=== PATIENT | female | born 1940 | race Caucasian/White ===

== ENCOUNTER 2017-06-14 17:53 | Inpatient (IN) ==
[2017-06-14] MEDS ORDERED: cefTRIAXone 1,000 MG in SODIUM CHLORIDE 0.9% 100 ML IV STA (19:22)
[2017-06-14] MEDS ORDERED: FUROSEMIDE 100 MG/10 ML VIAL IV STA (19:22)
[2017-06-14] MEDS ORDERED: SODIUM CHLORIDE 0.9% 500 ML IV STA (19:22)
[2017-06-14] MEDS ORDERED: methylPREDNISolone SOD SUC 125 MG/2 ML VIAL IV STA (19:22)
[2017-06-14] MEDS ORDERED: ALBUTEROL 2.5 MG/3 ML NEB RESP TX SCH (19:30)
[2017-06-14] MEDS ORDERED: SODIUM CHLORIDE 0.9% 100 ML IV ONE (19:32)
[2017-06-14] MEDS ORDERED: methylPREDNISolone SOD SUC 125 MG/2 ML VIAL ONE (19:32)
[2017-06-14] MEDS ORDERED: cefTRIAXone 1,000 MG VIAL ONE (19:32)
[2017-06-14] MEDS ORDERED: FUROSEMIDE 20 MG/2 ML VIAL ONE (19:32)
[2017-06-14 20:00] LABS: Basophils % 0.5 % (0.0-0.8); Eosinophils % 0.1 % (0.00-10.9); Hematocrit 44.4 VOL% (35.7-47.0); Hemoglobin 15.1 GM/DL (12.0-16.0); Immature Granulocytes % 0.4 %; Immature Granulocytes Absolute 0.03 #; Lymphocytes # 0.7 10*3/uL (1.4-4.0); Lymphocytes % 8.6 % (21.3-54.2); Mean Corpuscular Hemoglobin 30 PG (27-34); Mean Corpuscular Volume 86.7 FL (87-102); Mean Platelet Volume 12.5 FL (9.6-12.0); Monocytes # 0.7 10*3/uL (0.11-0.8); Monocytes % 8.6 % (1.7-12.7); Neutrophils # 6.6 10*3/uL (1.4-7.4); Neutrophils % 81.8 % (38.7-73.9); Platelet Count 153 T/CUMM (130-400); Red Blood Count 5.12 MC/CUMM (3.8-5.5); Red Cell Distribution Width 13.6 % (9.3-17.3)
[2017-06-14 20:11] LABS: INR 1.1; PT Patient Result 11.2 SECS
[2017-06-14 20:16] LABS: Apearance,Urine CLEAR (Clear); Bacteria,Urine Occasional /HPF (Few); Bilirubin,Urine Negative (Negative); Blood, Urine Small mg/dL (Negative); Glucose,Urine (UA) Negative (Negative); Ketones,Urine Negative (Negative); Nitrite,Urine Negative (Negative); Protein,Urine Negative; Squamous Epithelial Cell,Urine Occasional /HPF (0-10); Urine Color Straw (Yellow); Urine Specific Gravity 1.002 (1.001-1.035); Urine Urobilinogen < 2.0 EU/DL (0.2-1.0); WBC,Urine <1 /HPF (0-6)
[2017-06-14 20:47] LABS: Albumin 3.7 G/DL (3.4-5.0); Bilirubin,Total 0.7 MG/DL (0.2-1.0); Calcium 8.9 MG/DL (8.5-10.1); Magnesium 2.2 MG/DL (1.8-2.4); Potassium 4.2 MMOL/L (3.5-5.1); Total Protein 7.3 G/DL (6.4-8.3); Troponin I Only 0.041 NG/ML (0.00-0.045)
[2017-06-14] MEDS ORDERED: ONDANSETRON 4 MG/2 ML VIAL ONE (20:54)
[2017-06-14] MEDS ORDERED: FUROSEMIDE 40 MG/4 ML VIAL IV STA (20:55)
[2017-06-14] MEDS ORDERED: DILTIAZEM 50 MG/10 ML VIAL IV ONE (21:06)
[2017-06-14] MEDS ORDERED: ENOXAPARIN 100 MG/ML SYRINGE SUBCUT STA (21:28)
[2017-06-14] MEDS ORDERED: DILTIAZEM INJ 100 MG in SODIUM CHLORIDE 0.9% 100 ML IV SCH (21:30)
[2017-06-14] MEDS ORDERED: ENOXAPARIN 100 MG/ML SYRINGE SUBCUT ONE (21:31)
[2017-06-14] MEDS ORDERED: DILTIAZEM 100 MG VIAL.ADD IV ONE (21:31)
[2017-06-14] MEDS ORDERED: FUROSEMIDE 40 MG/4 ML VIAL ONE (21:50)
[2017-06-14] MEDS ORDERED: METOPROLOL TARTRATE 5 MG/5 ML VIAL IV STA (22:12)
[2017-06-14] MEDS ORDERED: METOPROLOL TARTRATE 5 MG/5 ML VIAL IV ONE (22:12)
[2017-06-15] MEDS ORDERED: LACTULOSE 20 GM/30 ML UDCUP PO PRN (00:51)
[2017-06-15] MEDS ORDERED: DEXTROSE 50% 25 GM/50 ML VIAL IV PRN ×3 (00:51→09:00)
[2017-06-15] MEDS ORDERED: GLUCAGON 1 MG VIAL IM PRN ×3 (00:51→09:00)
[2017-06-15] MEDS ORDERED: SODIUM CHLORIDE 0.9% 1,000 ML IV SCH (00:51)
[2017-06-15] MEDS ORDERED: ALBUTEROL/IPRATROPIUM 3 ML NEB RESP TX PRN (00:51)
[2017-06-15] MEDS ORDERED: MORPHINE 2 MG/1 ML SYRINGE IV PRN (00:51)
[2017-06-15] MEDS ORDERED: LEVOFLOXACIN INJ 750 MG in PREMIX 1 EACH IV SCH (00:51)
[2017-06-15] MEDS ORDERED: ONDANSETRON 4 MG/2 ML VIAL IV PRN (00:51)
[2017-06-15] MEDS: cefTRIAXone 1,000 MG in SYRINGE 1 EACH IV SCH (02:15)
[2017-06-15] MEDS: methylPREDNISolone SOD SUC 40 MG/1 ML VIAL IV SCH ×3 (02:26→16:51)
[2017-06-15 03:22] LABS: Basophils % 0.1 % (0.0-0.8); Immature Granulocytes % 0.5 %; Immature Granulocytes Absolute 0.04 #; Lymphocytes # 0.4 10*3/uL (1.4-4.0); Lymphocytes % 4.1 % (21.3-54.2); Mean Corpuscular HGB Conc 32.6 GM/DL (32-36); Mean Corpuscular Hemoglobin 29 PG (27-34); Mean Corpuscular Volume 87.6 FL (87-102); Mean Platelet Volume 13.4 FL (9.6-12.0); Monocytes # 0.1 10*3/uL (0.11-0.8); Monocytes % 1.5 % (1.7-12.7); Neutrophils # 7.9 10*3/uL (1.4-7.4); Neutrophils % 93.8 % (38.7-73.9); Platelet Count 158 T/CUMM (130-400); Red Blood Count 4.91 MC/CUMM (3.8-5.5); Red Cell Distribution Width 14.1 % (9.3-17.3); White Blood Count 8.5 T/CUMM (4-12)
[2017-06-15] MEDS ORDERED: AMIODARONE INJ 450 MG in DEXTROSE 5% 241 ML IV SCH (03:30)
[2017-06-15] MEDS ORDERED: AMIODARONE 450 MG/9 ML VIAL IV ONE (03:31)
[2017-06-15 03:33] LABS: Albumin 3.3 G/DL (3.4-5.0); Bilirubin,Total 0.6 MG/DL (0.2-1.0); Calcium 8.1 MG/DL (8.5-10.1); Magnesium 2.2 MG/DL (1.8-2.4); Potassium 3.2 MMOL/L (3.5-5.1); Risk Ratio 2.36; Total Protein 6.8 G/DL (6.4-8.3)
[2017-06-15 03:38] LABS: Troponin I Only 0.106 NG/ML (0.00-0.045)
[2017-06-15 03:51] LABS: Band Neutrophils 1 % (0-10); Lymphocytes 5 % (20-55); Segmented Neutrophils 94 % (50-85)
[2017-06-15 03:52] LABS: Platelet Estimate Adequate; Total Cells Counted 100
[2017-06-15] MEDS: INSULIN REGULAR 100 UNIT/ML SUBCUT SCH ×5 (04:42→21:52)
[2017-06-15] MEDS ORDERED: INSULIN REGULAR 100 UNIT/ML SUBCUT SCH (07:30)
[2017-06-15] MEDS ORDERED: FUROSEMIDE 40 MG/4 ML VIAL IV SCH (08:00)
[2017-06-15] MEDS ORDERED: SODIUM CHLOR 0.45% KCL 20 MEQ 20 MEQ/1,000 ML BAG IV SCH (08:00)
[2017-06-15] MEDS: MONTELUKAST 10 MG TABLET PO SCH (08:44)
[2017-06-15] MEDS: DOCUSATE SODIUM 100 MG CAPSULE PO SCH ×2 (08:44→21:52)
[2017-06-15] MEDS: CETIRIZINE 10 MG TABLET PO SCH (08:44)
[2017-06-15] MEDS: METOPROLOL TARTRATE 25 MG TABLET PO SCH ×2 (08:44→21:52)
[2017-06-15] MEDS: ASPIRIN EC 81 MG TABLET PO SCH (08:45)
[2017-06-15] MEDS: PANTOPRAZOLE 40 MG VIAL IV SCH (08:45)
[2017-06-15] MEDS: ENOXAPARIN 100 MG/ML SYRINGE SUBCUT SCH ×2 (08:45→21:51)
[2017-06-15] MEDS: glipiZIDE 10 MG TABLET PO SCH ×2 (09:49→21:52)
[2017-06-15] MEDS: POTASSIUM CHLORIDE 10 MEQ TABLET PO SCH ×2 (09:49→21:52)
[2017-06-15] MEDS: SODIUM CHLOR 0.45% KCL 20 MEQ 20 MEQ/1,000 ML BAG IV SCH (09:53)
[2017-06-15] MEDS: AMIODARONE INJ 450 MG in DEXTROSE 5% 241 ML IV SCH (09:54)
[2017-06-15 14:12] LABS: Troponin I Only 0.295 NG/ML (0.00-0.045)
[2017-06-15 16:12] LABS: CKMB % 3.3 %
[2017-06-15 16:15] LABS: Troponin I Only 0.283 NG/ML (0.00-0.045)
[2017-06-16] MEDS: methylPREDNISolone SOD SUC 40 MG/1 ML VIAL IV SCH ×3 (01:29→16:58)
[2017-06-16] MEDS: cefTRIAXone 1,000 MG in SYRINGE 1 EACH IV SCH (01:32)
[2017-06-16] MEDS: AMIODARONE INJ 450 MG in DEXTROSE 5% 241 ML IV SCH (02:52)
[2017-06-16 05:04] LABS: Basophils % 0.1 % (0.0-0.8); Hematocrit 43.6 VOL% (35.7-47.0); Hemoglobin 14.5 GM/DL (12.0-16.0); Immature Granulocytes Absolute 0.22 #; Lymphocytes # 1.1 10*3/uL (1.4-4.0); Lymphocytes % 5.2 % (21.3-54.2); Mean Corpuscular HGB Conc 33.3 GM/DL (32-36); Mean Corpuscular Hemoglobin 29 PG (27-34); Mean Corpuscular Volume 87.6 FL (87-102); Mean Platelet Volume 13.5 FL (9.6-12.0); Monocytes # 0.8 10*3/uL (0.11-0.8); Neutrophils # 18.8 10*3/uL (1.4-7.4); Neutrophils % 89.7 % (38.7-73.9); Platelet Count 162 T/CUMM (130-400); Red Blood Count 4.98 MC/CUMM (3.8-5.5)
[2017-06-16] MEDS: SODIUM CHLOR 0.45% KCL 20 MEQ 20 MEQ/1,000 ML BAG IV SCH (05:40)
[2017-06-16 05:44] LABS: Calcium 9.1 MG/DL (8.5-10.1); Magnesium 2.6 MG/DL (1.8-2.4); Osmolality,Calculated 284.7 MOS/KG (273-304); Potassium 4.4 MMOL/L (3.5-5.1)
[2017-06-16 05:49] LABS: Ferritin 268.1 ng/ml (8-252); Thyroid Stimulating Hormone 0.183 uIU/ml (0.358-3.74)
[2017-06-16 06:22] LABS: Band Neutrophils 10 % (0-10); Hypochromasia 1+; Lymphocytes 8 % (20-55); Microcytosis 1+; Platelet Estimate Adequate; Segmented Neutrophils 79 % (50-85); Total Cells Counted 100
[2017-06-16 06:26] LABS: Albumin 3.5 G/DL (3.4-5.0); Bilirubin,Total 0.9 MG/DL (0.2-1.0); Calcium 8.9 MG/DL (8.5-10.1); Osmolality,Calculated 283.7 MOS/KG (273-304); Potassium 4.7 MMOL/L (3.5-5.1); Total Protein 7.1 G/DL (6.4-8.3)
[2017-06-16] MEDS ORDERED: POTASSIUM CHLORIDE 10 MEQ TABLET PO SCH (09:00)
[2017-06-16] MEDS ORDERED: FUROSEMIDE 40 MG/4 ML VIAL IV SCH (09:00)
[2017-06-16] MEDS: glipiZIDE 10 MG TABLET PO SCH ×2 (09:14→21:40)
[2017-06-16] MEDS: CETIRIZINE 10 MG TABLET PO SCH (09:15)
[2017-06-16] MEDS: ENOXAPARIN 100 MG/ML SYRINGE SUBCUT SCH (09:15)
[2017-06-16] MEDS: METOPROLOL TARTRATE 25 MG TABLET PO SCH ×2 (09:15→21:40)
[2017-06-16] MEDS: MONTELUKAST 10 MG TABLET PO SCH (09:15)
[2017-06-16] MEDS: DOCUSATE SODIUM 100 MG CAPSULE PO SCH ×2 (09:15→21:41)
[2017-06-16] MEDS: ASPIRIN EC 81 MG TABLET PO SCH (09:15)
[2017-06-16] MEDS: INSULIN REGULAR 100 UNIT/ML SUBCUT SCH ×4 (09:16→21:40)
[2017-06-16] MEDS: PANTOPRAZOLE 40 MG VIAL IV SCH (09:17)
[2017-06-16] MEDS: POTASSIUM CHLORIDE 10 MEQ TABLET PO SCH (10:14)
[2017-06-16] MEDS: BUDESONIDE/FORMOTEROL 160-4.5 INHALER 6 GM INH SCH ×2 (10:14→21:42)
[2017-06-16] MEDS: AMIODARONE 200 MG TABLET PO SCH ×2 (11:02→21:41)
[2017-06-16] MEDS ORDERED: ALBUTEROL 2.5 MG/3 ML NEB RESP TX SCH (13:00)
[2017-06-16] MEDS: LISINOPRIL 2.5 MG TABLET PO SCH (13:05)
[2017-06-16] MEDS: LEVALBUTEROL 1.25 MG/3 ML NEB RESP TX SCH ×2 (13:17→20:18)
[2017-06-16] MEDS: APIXABAN 5 MG TABLET PO SCH (21:41)
[2017-06-17] MEDS: methylPREDNISolone SOD SUC 40 MG/1 ML VIAL IV SCH ×3 (00:07→16:35)
[2017-06-17] MEDS: SODIUM CHLOR 0.45% KCL 20 MEQ 20 MEQ/1,000 ML BAG IV SCH ×2 (00:07→21:21)
[2017-06-17] MEDS: cefTRIAXone 1,000 MG in SYRINGE 1 EACH IV SCH (00:11)
[2017-06-17] MEDS: LEVALBUTEROL 1.25 MG/3 ML NEB RESP TX SCH ×4 (00:44→19:33)
[2017-06-17 05:56] LABS: Basophils % 0.1 % (0.0-0.8); Hematocrit 39.7 VOL% (35.7-47.0); Hemoglobin 13.3 GM/DL (12.0-16.0); Immature Granulocytes % 0.5 %; Immature Granulocytes Absolute 0.08 #; Lymphocytes # 0.7 10*3/uL (1.4-4.0); Lymphocytes % 4.2 % (21.3-54.2); Mean Corpuscular HGB Conc 33.5 GM/DL (32-36); Mean Corpuscular Hemoglobin 29 PG (27-34); Mean Corpuscular Volume 87.3 FL (87-102); Mean Platelet Volume 13.2 FL (9.6-12.0); Monocytes # 0.6 10*3/uL (0.11-0.8); Monocytes % 3.4 % (1.7-12.7); Neutrophils # 15.4 10*3/uL (1.4-7.4); Neutrophils % 91.8 % (38.7-73.9); Platelet Count 163 T/CUMM (130-400); Red Blood Count 4.55 MC/CUMM (3.8-5.5); Red Cell Distribution Width 14.3 % (9.3-17.3); White Blood Count 16.7 T/CUMM (4-12)
[2017-06-17 06:29] LABS: Calcium 8.5 MG/DL (8.5-10.1); Magnesium 2.5 MG/DL (1.8-2.4); Osmolality,Calculated 287.7 MOS/KG (273-304); Potassium 4.2 MMOL/L (3.5-5.1)
[2017-06-17 07:00] LABS: Band Neutrophils 3 % (0-10); Hypochromasia Slight; Lymphocytes 4 % (20-55); Microcytosis 1+; Platelet Estimate Adequate; Segmented Neutrophils 93 % (50-85); Total Cells Counted 100
[2017-06-17] MEDS: DOCUSATE SODIUM 100 MG CAPSULE PO SCH ×2 (09:14→21:22)
[2017-06-17] MEDS: METOPROLOL TARTRATE 25 MG TABLET PO SCH ×2 (09:15→21:22)
[2017-06-17] MEDS: POTASSIUM CHLORIDE 10 MEQ TABLET PO SCH (09:15)
[2017-06-17] MEDS: glipiZIDE 10 MG TABLET PO SCH ×2 (09:16→21:22)
[2017-06-17] MEDS: LISINOPRIL 2.5 MG TABLET PO SCH (09:16)
[2017-06-17] MEDS: FUROSEMIDE 40 MG TABLET PO SCH (09:16)
[2017-06-17] MEDS: AMIODARONE 200 MG TABLET PO SCH ×2 (09:16→21:22)
[2017-06-17] MEDS: MONTELUKAST 10 MG TABLET PO SCH ×2 (09:16→21:22)
[2017-06-17] MEDS: APIXABAN 5 MG TABLET PO SCH ×2 (09:16→21:22)
[2017-06-17] MEDS: ASPIRIN EC 81 MG TABLET PO SCH (09:16)
[2017-06-17] MEDS: BUDESONIDE/FORMOTEROL 160-4.5 INHALER 6 GM INH SCH ×2 (09:17→21:22)
[2017-06-17] MEDS: CETIRIZINE 10 MG TABLET PO SCH (09:17)
[2017-06-17] MEDS: INSULIN REGULAR 100 UNIT/ML SUBCUT SCH ×4 (09:17→21:21)
[2017-06-17] MEDS: PANTOPRAZOLE 40 MG VIAL IV SCH (09:24)
[2017-06-17] MEDS: LEVOFLOXACIN INJ 750 MG in PREMIX 1 EACH IV SCH (09:26)
[2017-06-17] MEDS ORDERED: LISINOPRIL 5 MG TABLET PO SCH (12:00)
[2017-06-17] MEDS ORDERED: PHENYLEPH/MINERAL OIL/PETROLAT 57 GM TUBE TOP PRN (12:01)
[2017-06-18] MEDS: methylPREDNISolone SOD SUC 40 MG/1 ML VIAL IV SCH ×3 (01:05→16:59)
[2017-06-18] MEDS: cefTRIAXone 1,000 MG in SYRINGE 1 EACH IV SCH (01:05)
[2017-06-18] MEDS: LEVALBUTEROL 1.25 MG/3 ML NEB RESP TX SCH ×4 (01:36→20:51)
[2017-06-18 04:58] LABS: Basophils % 0.1 % (0.0-0.8); Hematocrit 39.8 VOL% (35.7-47.0); Hemoglobin 13.3 GM/DL (12.0-16.0); Immature Granulocytes % 1.4 %; Immature Granulocytes Absolute 0.24 #; Lymphocytes # 0.5 10*3/uL (1.4-4.0); Lymphocytes % 2.9 % (21.3-54.2); Mean Corpuscular HGB Conc 33.4 GM/DL (32-36); Mean Corpuscular Hemoglobin 29 PG (27-34); Mean Corpuscular Volume 86.5 FL (87-102); Mean Platelet Volume 12.8 FL (9.6-12.0); Monocytes # 0.8 10*3/uL (0.11-0.8); Monocytes % 4.4 % (1.7-12.7); Neutrophils # 15.7 10*3/uL (1.4-7.4); Neutrophils % 91.2 % (38.7-73.9); Platelet Count 156 T/CUMM (130-400); Red Cell Distribution Width 14.2 % (9.3-17.3); White Blood Count 17.2 T/CUMM (4-12)
[2017-06-18 06:02] LABS: Calcium 8.6 MG/DL (8.5-10.1); Magnesium 2.3 MG/DL (1.8-2.4); Osmolality,Calculated 287.4 MOS/KG (273-304); Potassium 4.2 MMOL/L (3.5-5.1)
[2017-06-18 06:18] LABS: Band Neutrophils 4 % (0-10); Hypochromasia 1+; Lymphocytes 3 % (20-55); Segmented Neutrophils 91 % (50-85); Total Cells Counted 100
[2017-06-18 06:19] LABS: Microcytosis 1+; Platelet Estimate Adequate
[2017-06-18] MEDS: INSULIN REGULAR 100 UNIT/ML SUBCUT SCH ×5 (09:39→21:27)
[2017-06-18] MEDS: PANTOPRAZOLE 40 MG VIAL IV SCH (09:40)
[2017-06-18] MEDS: POTASSIUM CHLORIDE 10 MEQ TABLET PO SCH (09:45)
[2017-06-18] MEDS: AMIODARONE 200 MG TABLET PO SCH ×2 (09:45→21:24)
[2017-06-18] MEDS: METOPROLOL TARTRATE 25 MG TABLET PO SCH ×2 (09:45→21:30)
[2017-06-18] MEDS: ASPIRIN EC 81 MG TABLET PO SCH (09:45)
[2017-06-18] MEDS: FUROSEMIDE 40 MG TABLET PO SCH (09:45)
[2017-06-18] MEDS: glipiZIDE 10 MG TABLET PO SCH ×2 (09:45→21:26)
[2017-06-18] MEDS: MONTELUKAST 10 MG TABLET PO SCH ×2 (09:45→21:30)
[2017-06-18] MEDS: APIXABAN 5 MG TABLET PO SCH ×2 (09:45→21:25)
[2017-06-18] MEDS: CETIRIZINE 10 MG TABLET PO SCH (09:46)
[2017-06-18] MEDS: BUDESONIDE/FORMOTEROL 160-4.5 INHALER 6 GM INH SCH ×2 (09:46→21:31)
[2017-06-18] MEDS: DOCUSATE SODIUM 100 MG CAPSULE PO SCH ×2 (10:34→21:24)
[2017-06-19] MEDS: methylPREDNISolone SOD SUC 40 MG/1 ML VIAL IV SCH ×3 (00:53→16:53)
[2017-06-19] MEDS: cefTRIAXone 1,000 MG in SYRINGE 1 EACH IV SCH (00:57)
[2017-06-19] MEDS: LEVALBUTEROL 1.25 MG/3 ML NEB RESP TX SCH ×4 (02:11→19:53)
[2017-06-19 05:52] LABS: Basophils % 0.2 % (0.0-0.8); Hematocrit 38.7 VOL% (35.7-47.0); Hemoglobin 13.2 GM/DL (12.0-16.0); Immature Granulocytes Absolute 0.28 #; Lymphocytes # 0.6 10*3/uL (1.4-4.0); Mean Corpuscular HGB Conc 34.1 GM/DL (32-36); Mean Corpuscular Hemoglobin 29 PG (27-34); Mean Corpuscular Volume 85.8 FL (87-102); Monocytes # 0.7 10*3/uL (0.11-0.8); Monocytes % 4.8 % (1.7-12.7); Neutrophils # 12.3 10*3/uL (1.4-7.4); Platelet Count 154 T/CUMM (130-400); Red Blood Count 4.51 MC/CUMM (3.8-5.5); Red Cell Distribution Width 14.4 % (9.3-17.3); White Blood Count 13.8 T/CUMM (4-12)
[2017-06-19 06:15] LABS: Calcium 8.3 MG/DL (8.5-10.1); Magnesium 2.4 MG/DL (1.8-2.4); Osmolality,Calculated 279.5 MOS/KG (273-304); Potassium 4.2 MMOL/L (3.5-5.1)
[2017-06-19 06:27] LABS: Band Neutrophils 2 % (0-10); Hypochromasia 2+; Lymphocytes 2 % (20-55); Platelet Estimate Adequate; Segmented Neutrophils 93 % (50-85); Total Cells Counted 100
[2017-06-19] MEDS: CETIRIZINE 10 MG TABLET PO SCH (08:55)
[2017-06-19] MEDS: FUROSEMIDE 40 MG TABLET PO SCH (08:55)
[2017-06-19] MEDS: MONTELUKAST 10 MG TABLET PO SCH ×2 (08:55→21:43)
[2017-06-19] MEDS: ACETAMINOPHEN 325 MG TABLET PO PRN ×2 (08:56→16:51)
[2017-06-19] MEDS: ASPIRIN EC 81 MG TABLET PO SCH (08:57)
[2017-06-19] MEDS: AMIODARONE 200 MG TABLET PO SCH ×2 (08:57→21:43)
[2017-06-19] MEDS: POTASSIUM CHLORIDE 10 MEQ TABLET PO SCH (08:57)
[2017-06-19] MEDS: DOCUSATE SODIUM 100 MG CAPSULE PO SCH ×2 (08:57→21:43)
[2017-06-19] MEDS: METOPROLOL TARTRATE 25 MG TABLET PO SCH ×2 (08:57→21:43)
[2017-06-19] MEDS: APIXABAN 5 MG TABLET PO SCH ×2 (08:57→21:43)
[2017-06-19] MEDS: glipiZIDE 10 MG TABLET PO SCH ×2 (08:58→21:43)
[2017-06-19] MEDS: INSULIN REGULAR 100 UNIT/ML SUBCUT SCH ×4 (08:58→21:42)
[2017-06-19] MEDS: BUDESONIDE/FORMOTEROL 160-4.5 INHALER 6 GM INH SCH ×2 (09:01→21:56)
[2017-06-19] MEDS: PANTOPRAZOLE 40 MG VIAL IV SCH (09:06)
[2017-06-19] MEDS: LEVOFLOXACIN INJ 750 MG in PREMIX 1 EACH IV SCH (09:07)
[2017-06-19] MEDS ORDERED: DEXTROMETHORPHAN ER 6 MG/ML 90 ML/BOTTLE PO PRN ×2 (10:53→11:00)
[2017-06-19] MEDS ORDERED: HYDROcodone/CHLORPHENIRAMINE ER 5 ML UDCUP PO PRN (10:56)
[2017-06-19] MEDS: BENZONATATE 100 MG CAPSULE PO SCH ×2 (14:02→21:43)
[2017-06-20] MEDS: LEVALBUTEROL 1.25 MG/3 ML NEB RESP TX SCH ×5 (00:46→20:59)
[2017-06-20] MEDS: cefTRIAXone 1,000 MG in SYRINGE 1 EACH IV SCH (01:41)
[2017-06-20] MEDS: methylPREDNISolone SOD SUC 40 MG/1 ML VIAL IV SCH ×3 (01:42→16:11)
[2017-06-20 06:01] LABS: Basophils % 0.2 % (0.0-0.8); Hematocrit 40.4 VOL% (35.7-47.0); Immature Granulocytes % 2.7 %; Immature Granulocytes Absolute 0.45 #; Lymphocytes # 0.5 10*3/uL (1.4-4.0); Lymphocytes % 3.2 % (21.3-54.2); Mean Corpuscular HGB Conc 34.7 GM/DL (32-36); Mean Corpuscular Hemoglobin 29 PG (27-34); Mean Corpuscular Volume 84.5 FL (87-102); Mean Platelet Volume 12.8 FL (9.6-12.0); Monocytes # 0.6 10*3/uL (0.11-0.8); Monocytes % 3.5 % (1.7-12.7); Neutrophils # 15.2 10*3/uL (1.4-7.4); Neutrophils % 90.4 % (38.7-73.9); Platelet Count 148 T/CUMM (130-400); Red Blood Count 4.78 MC/CUMM (3.8-5.5); Red Cell Distribution Width 13.9 % (9.3-17.3); White Blood Count 16.8 T/CUMM (4-12)
[2017-06-20 06:19] LABS: Calcium 8.4 MG/DL (8.5-10.1); Magnesium 2.5 MG/DL (1.8-2.4); Osmolality,Calculated 279.7 MOS/KG (273-304); Potassium 3.8 MMOL/L (3.5-5.1)
[2017-06-20 06:25] LABS: Hypochromasia 1+; Microcytosis Slight; Platelet Estimate Adequate
[2017-06-20] MEDS: DOCUSATE SODIUM 100 MG CAPSULE PO SCH ×2 (09:22→21:43)
[2017-06-20] MEDS: FUROSEMIDE 40 MG TABLET PO SCH (09:22)
[2017-06-20] MEDS: BENZONATATE 100 MG CAPSULE PO SCH ×3 (09:23→21:43)
[2017-06-20] MEDS: CETIRIZINE 10 MG TABLET PO SCH (09:23)
[2017-06-20] MEDS: MONTELUKAST 10 MG TABLET PO SCH ×2 (09:23→21:44)
[2017-06-20] MEDS: glipiZIDE 10 MG TABLET PO SCH ×2 (09:23→21:44)
[2017-06-20] MEDS: METOPROLOL TARTRATE 25 MG TABLET PO SCH ×2 (09:23→21:44)
[2017-06-20] MEDS: APIXABAN 5 MG TABLET PO SCH ×2 (09:24→21:44)
[2017-06-20] MEDS: ASPIRIN EC 81 MG TABLET PO SCH (09:24)
[2017-06-20] MEDS: AMIODARONE 200 MG TABLET PO SCH ×2 (09:24→21:44)
[2017-06-20] MEDS: POTASSIUM CHLORIDE 10 MEQ TABLET PO SCH (09:24)
[2017-06-20] MEDS: INSULIN REGULAR 100 UNIT/ML SUBCUT SCH ×4 (09:25→21:43)
[2017-06-20] MEDS: PANTOPRAZOLE 40 MG VIAL IV SCH (09:25)
[2017-06-20] MEDS: BUDESONIDE/FORMOTEROL 160-4.5 INHALER 6 GM INH SCH ×2 (09:30→21:45)
[2017-06-20] MEDS: LEVOFLOXACIN INJ 750 MG in PREMIX 1 EACH IV SCH (09:36)
[2017-06-20] MEDS: FUROSEMIDE 40 MG/4 ML VIAL IV SCH ×2 (11:11→16:11)
[2017-06-20] MEDS: ASCORBIC ACID 500 MG TABLET PO SCH ×2 (14:09→21:44)
[2017-06-20] MEDS: LOSARTAN 25 MG TABLET PO SCH (14:09)
[2017-06-20] MEDS: ACETAMINOPHEN 325 MG TABLET PO PRN (21:57)
[2017-06-21] MEDS: LEVALBUTEROL 1.25 MG/3 ML NEB RESP TX SCH ×4 (00:19→20:32)
[2017-06-21] MEDS: methylPREDNISolone SOD SUC 40 MG/1 ML VIAL IV SCH ×2 (00:39→09:08)
[2017-06-21] MEDS: cefTRIAXone 1,000 MG in SYRINGE 1 EACH IV SCH (00:41)
[2017-06-21 05:39] LABS: Basophils % 0.1 % (0.0-0.8); Hematocrit 39.4 VOL% (35.7-47.0); Hemoglobin 13.7 GM/DL (12.0-16.0); Immature Granulocytes % 3.7 %; Immature Granulocytes Absolute 0.53 #; Lymphocytes # 0.5 10*3/uL (1.4-4.0); Lymphocytes % 3.7 % (21.3-54.2); Mean Corpuscular HGB Conc 34.8 GM/DL (32-36); Mean Corpuscular Hemoglobin 29 PG (27-34); Mean Corpuscular Volume 84.2 FL (87-102); Mean Platelet Volume 12.2 FL (9.6-12.0); Monocytes # 0.4 10*3/uL (0.11-0.8); Monocytes % 2.8 % (1.7-12.7); Neutrophils # 12.7 10*3/uL (1.4-7.4); Neutrophils % 89.7 % (38.7-73.9); Platelet Count 141 T/CUMM (130-400); Red Blood Count 4.68 MC/CUMM (3.8-5.5); Red Cell Distribution Width 13.9 % (9.3-17.3); White Blood Count 14.2 T/CUMM (4-12)
[2017-06-21 06:01] LABS: Band Neutrophils 2 % (0-10); Giant Platelets Few; Hypochromasia 1+; Lymphocytes 7 % (20-55); Microcytosis Slight; Ovalocytes Slight; Platelet Estimate Normal; Segmented Neutrophils 90 % (50-85); Total Cells Counted 100
[2017-06-21 06:08] LABS: Calcium 7.9 MG/DL (8.5-10.1); Magnesium 2.5 MG/DL (1.8-2.4)
[2017-06-21] MEDS: INSULIN REGULAR 100 UNIT/ML SUBCUT SCH ×4 (09:05→21:27)
[2017-06-21] MEDS: POTASSIUM CHLORIDE 10 MEQ TABLET PO SCH (09:06)
[2017-06-21] MEDS: glipiZIDE 10 MG TABLET PO SCH ×2 (09:06→21:17)
[2017-06-21] MEDS: AMIODARONE 200 MG TABLET PO SCH ×2 (09:06→21:16)
[2017-06-21] MEDS: ASCORBIC ACID 500 MG TABLET PO SCH ×2 (09:06→21:16)
[2017-06-21] MEDS: CETIRIZINE 10 MG TABLET PO SCH (09:07)
[2017-06-21] MEDS: METOPROLOL TARTRATE 25 MG TABLET PO SCH ×2 (09:07→21:17)
[2017-06-21] MEDS: DOCUSATE SODIUM 100 MG CAPSULE PO SCH ×2 (09:07→21:16)
[2017-06-21] MEDS: APIXABAN 5 MG TABLET PO SCH ×2 (09:07→21:17)
[2017-06-21] MEDS: SPIRONOLACTONE 25 MG TABLET PO SCH (09:07)
[2017-06-21] MEDS: MONTELUKAST 10 MG TABLET PO SCH ×2 (09:07→21:17)
[2017-06-21] MEDS: ASPIRIN EC 81 MG TABLET PO SCH (09:08)
[2017-06-21] MEDS: BENZONATATE 100 MG CAPSULE PO SCH ×3 (09:08→21:16)
[2017-06-21] MEDS: LOSARTAN 25 MG TABLET PO SCH (09:08)
[2017-06-21] MEDS: PANTOPRAZOLE 40 MG VIAL IV SCH (09:08)
[2017-06-21] MEDS: LEVOFLOXACIN INJ 750 MG in PREMIX 1 EACH IV SCH (09:09)
[2017-06-21] MEDS: FUROSEMIDE 40 MG/4 ML VIAL IV SCH ×3 (09:09→16:52)
[2017-06-21] MEDS: BUDESONIDE/FORMOTEROL 160-4.5 INHALER 6 GM INH SCH ×2 (09:12→21:17)
[2017-06-21] MEDS: POTASSIUM CHLORIDE 20 MEQ TABLET PO PRN ×3 (12:31→16:13)
[2017-06-21] MEDS: predniSONE 10 MG TABLET PO SCH (12:31)
[2017-06-21] MEDS ORDERED: FUROSEMIDE 40 MG TABLET PO SCH (17:00)
[2017-06-21] MEDS: FUROSEMIDE 40 MG TABLET PO SCH (17:13)
[2017-06-22] MEDS: LEVALBUTEROL 1.25 MG/3 ML NEB RESP TX SCH ×2 (00:48→07:38)
[2017-06-22] MEDS: ASPIRIN EC 81 MG TABLET PO SCH (08:59)
[2017-06-22] MEDS: CETIRIZINE 10 MG TABLET PO SCH (08:59)
[2017-06-22] MEDS: ASCORBIC ACID 500 MG TABLET PO SCH (08:59)
[2017-06-22] MEDS: SPIRONOLACTONE 25 MG TABLET PO SCH (08:59)
[2017-06-22] MEDS: DOCUSATE SODIUM 100 MG CAPSULE PO SCH (08:59)
[2017-06-22] MEDS: METOPROLOL TARTRATE 25 MG TABLET PO SCH (08:59)
[2017-06-22] MEDS: BENZONATATE 100 MG CAPSULE PO SCH (08:59)
[2017-06-22] MEDS: MONTELUKAST 10 MG TABLET PO SCH (08:59)
[2017-06-22] MEDS: FUROSEMIDE 40 MG TABLET PO SCH (09:00)
[2017-06-22] MEDS: LOSARTAN 25 MG TABLET PO SCH (09:00)
[2017-06-22] MEDS: glipiZIDE 10 MG TABLET PO SCH (09:00)
[2017-06-22] MEDS ORDERED: AMIODARONE 200 MG TABLET PO SCH (09:00)
[2017-06-22] MEDS: predniSONE 10 MG TABLET PO SCH (09:00)
[2017-06-22] MEDS: APIXABAN 5 MG TABLET PO SCH (09:00)
[2017-06-22] MEDS: INSULIN REGULAR 100 UNIT/ML SUBCUT SCH ×2 (09:01→12:24)
[2017-06-22] MEDS: BUDESONIDE/FORMOTEROL 160-4.5 INHALER 6 GM INH SCH (09:01)
[2017-06-22] MEDS: PANTOPRAZOLE 40 MG VIAL IV SCH (09:01)
[2017-06-22] MEDS: LEVOFLOXACIN INJ 750 MG in PREMIX 1 EACH IV SCH (11:18)
[2017-06-22] MEDS ORDERED: LEVOFLOXACIN 500 MG TABLET PO SCH (11:30)
[2017-06-22 12:18] VITALS: BP 133/69
[2017-06-22 15:01] LABS: Procalcitonin, S 0.51 ng/mL (<=0.15)
== END 2017-06-22 12:35 | disposition home or self-care (01) | DRG 308 ==
LOC: N.ED 17:53 → N.EDINP 23:28 → N.TELEN 06-15 00:39
PROVIDERS: ADMIT Family Medicine; ATTEND Family Medicine